=== PATIENT | female | born 1975 | race Two or more races ===

== ENCOUNTER → 2016-10-05 | Emergency (ER) | payer OTHER ==
[~2016-10-05] VITALS: Ht 170.2 cm; Wt 68.0 kg
[2016-10-05 12:35] VITALS: BP 136/78
--- NOTE | 2016-10-05 12:35 | NUR ---
AAOX3, CAME TO ER C/O INTERMITTENT PELVIC PAIN, SHARP NON RADIATING X 2 DAYS. SKIN IS WARM AND DRY. RESP EVEN AND UNLABORED WITH NAD NOTED. AWAITING MD FOR EVAL.
[2016-10-05 13:12] LABS: BASOPHILS % (AUTO) 0.7 % (0.0-2.0); EOSINOPHILS # (AUTO) 0.1 /CMM (0.0-0.7); EOSINOPHILS % (AUTO) 1.8 % (0.0-6.0); HEMATOCRIT 36 % (33-45); LYMPHOCYTES % (AUTO) 21.8 % (20.0-44.0); MEAN CORPUSCULAR HEMOGLOBIN 28 PG (26.0-33.0); MEAN CORPUSCULAR HGB CONC 34 g/dl (31.0-36.0); MEAN CORPUSCULAR VOLUME 84 fL (82-100); MONOCYTES # (AUTO) 0.2 /CMM (0.1-1.30); MONOCYTES % (AUTO) 5.1 % (2.0-12.0); NEUTROPHILS # (AUTO) 3.5 /CMM (1.8-8.9); NEUTROPHILS % (AUTO) 70.6 % (43.0-81.0); PLATELET COUNT (AUTO) 227 /CMM (150-450); RDW COEFFICIENT OF VARIATION 13.3 (11.5-15.0); RED BLOOD CELL COUNT(AUTO) 4.27 MIL/uL (4.0-5.2); WHITE BLOOD COUNT (AUTO) 4.8 K/uL (4.3-11.0)
[2016-10-05 13:16] LABS: APPEARANCE,URINE Clear (CLEAR); BILIRUBIN,URINE Negative (NEGATIVE); BLOOD, URINE Negative Ery/uL (NEGATIVE); COLOR,URINE Yellow (YELLOW); KETONES,URINE Trace (NEGATIVE); LEUKOCYTE ESTERASE ,URINE Negative (NEGATIVE); NITRITE, URINE Negative (NEGATIVE); PROTEIN,URINE Negative (NEGATIVE); UGLUCOSE Negative (NEGATIVE); UROBILINOGEN,URINE 0.2 EU/dL (0.2)
[2016-10-05 14:26] LABS: ADD URINE CULTURE NO; BACTERIA,URINE Few /HPF (None Seen); RBC,URINE 0-2 /HPF (0-2); SQUAMOUS EPITHELIAL CELL,UR Few /HPF (None Seen); WBC,URINE 0-2 /HPF (0-3)
== END | disposition home or self-care (01) ==
LOC: ER 12:22
DX: O20.0 Threatened abortion (principal); R10.2 Pelvic and perineal pain
CPT/HCPCS: 36415; 76856; 81001; 85025; 86850; 99285; A4606; Z7610; 81000-TC

== ENCOUNTER 2016-10-31 17:17 | Emergency (ER) | payer OTHER ==
[~2016-10-31] VITALS: Ht 165.1 cm; Wt 65.8 kg
[2016-10-31] MEDS ORDERED: ONDANSETRON HCL/PF 4 MG/2 ML VIAL ONE (17:37)
[2016-10-31] MEDS ORDERED: IV SET PRIMARY 1 EA INFUS.SET MC ONE (17:37)
[2016-10-31] MEDS ORDERED: HYDROMORPHONE 1 MG/1 ML DISP.SYRIN ONE (17:37)
[2016-10-31] MEDS ORDERED: IV NS 0.9% 500 ML IV ONE (17:37)
--- NOTE | 2016-10-31 17:40 | NUR ---
Pt [id number] from home: vaginal bleeding s/p elective on the . PER PT MINIMAL BLEEDING. COMPLAING OF ABD PAIN. MD AT BS FOR EVAL. VSS. SAFETY AND COMFORT MEASURES PROVIDED. WILL MONITOR.
[2016-10-31 17:42] LABS: BASOPHILS % (AUTO) 0.4 % (0.0-2.0); EOSINOPHILS # (AUTO) 0.1 /CMM (0.0-0.7); EOSINOPHILS % (AUTO) 1.2 % (0.0-6.0); HEMATOCRIT 32 % (33-45); HEMOGLOBIN 10.4 g/dL (11.5-14.8); LYMPHOCYTES # (AUTO) 0.8 /CMM (0.8-4.8); LYMPHOCYTES % (AUTO) 11.5 % (20.0-44.0); MEAN CORPUSCULAR HEMOGLOBIN 28 PG (26.0-33.0); MEAN CORPUSCULAR HGB CONC 33 g/dl (31.0-36.0); MEAN CORPUSCULAR VOLUME 84 fL (82-100); MONOCYTES # (AUTO) 0.4 /CMM (0.1-1.30); MONOCYTES % (AUTO) 5.8 % (2.0-12.0); NEUTROPHILS # (AUTO) 5.6 /CMM (1.8-8.9); NEUTROPHILS % (AUTO) 81.1 % (43.0-81.0); PLATELET COUNT (AUTO) 206 /CMM (150-450); RDW COEFFICIENT OF VARIATION 15.8 (11.5-15.0); RED BLOOD CELL COUNT(AUTO) 3.74 MIL/uL (4.0-5.2); WHITE BLOOD COUNT (AUTO) 6.9 K/uL (4.3-11.0)
--- NOTE | 2016-10-31 17:50 | NUR ---
IV ACCESS STARTED. PT MEDICATED ORDERED. BLOOD DRAWN FOR LABS.
[2016-10-31 17:59] LABS: CALCIUM, SERUM 8.8 mg/dL (8.5-10.1); CREATININE 0.7 mg/dL (0.6-1.3); POTASSIUM 3.4 mmol/L (3.5-5.1)
[2016-10-31] MEDS ORDERED: IV NS 0.9% 500 ML BAG IV ONE (18:00)
[2016-10-31] MEDS ORDERED: HYDROMORPHONE INJ 2 MG/ML DISP.SYRIN IV ONE (18:00)
[2016-10-31] MEDS ORDERED: ONDANSETRON HCL/PF 4 MG/2 ML VIAL IVP ONE (18:00)
--- NOTE | 2016-10-31 18:15 | NUR ---
GIANNA POON AT BS.
--- NOTE | 2016-10-31 18:52 | NUR ---
DR AHUMADA ON THE LINE WITH DR SALEH
--- NOTE | 2016-10-31 19:39 | NUR ---
IV removed. Catheter intact and site benign. Pressure and 4x4 applied to site. No bleeding noted. Patient discharged to home in stable condition. Written and verbal after care instructions given. Patient verbalizes understanding of instruction. ambulatory with a steady gait noted. pt aaox4 no acute distress noted, resp even and unlabored. advice pt not to drive or operate any machinery due pt wad given narcotic medicine. pt verbalize understanding.
[2016-10-31 19:40] VITALS: BP 146/82
== END 2016-10-31 19:41 | disposition home or self-care (01) ==
LOC: ER 17:20
DX: R10.2 Pelvic and perineal pain (principal)
CPT/HCPCS: 36415; 76856-TC; 80048-TC; 85025-TC; A4606; J1170; J2405; J7040; Z7610

== ENCOUNTER 2018-05-22 10:34 | Emergency (ER) | payer OTHER ==
[~2018-05-22] VITALS: Ht 177.8 cm; Wt 65.8 kg
--- NOTE | 2018-05-22 10:50 | NUR ---
C/O NAUSEA AND VOMITING SINCE THIS MORNING, ALSO C/O VIVAS. PT AAOX4, VSS. DENIES CP, SOB, DIARRHEA @ THIS TIME. ARACELY, ACCOUNTS ADJUSTABLE CLERK @ BS FOR EVAL. WILL CONT TO MONITOR.
[2018-05-22] MEDS ORDERED: diphenhydrAMINE HCL 50 MG/ML VIAL ONE (11:16)
[2018-05-22] MEDS ORDERED: METOCLOPRAMIDE HCL 10 MG/2 ML VIAL ONE (11:17)
--- NOTE | 2018-05-22 11:28 | NUR ---
MEDICATED FOR VIVAS & NAUSEA, PT BRENDA WELL.
[2018-05-22] MEDS ORDERED: METOCLOPRAMIDE HCL 10 MG/2 ML VIAL IV ONE (11:30)
[2018-05-22] MEDS ORDERED: diphenhydrAMINE HCL 50 MG/ML VIAL IV ONE (11:30)
[2018-05-22] MEDS ORDERED: IV NS 0.9% 250 ML BAG IV ONE (11:30)
[2018-05-22] MEDS ORDERED: KETOROLAC TROMETHAMINE INJ 30 MG/ML VIAL IV ONE (13:30)
--- NOTE | 2018-05-22 13:37 | NUR ---
Patient discharged to home in stable condition. Written and verbal after care instructions given. Patient verbalizes understanding of instruction. IV removed. Catheter intact and site benign. Pressure and 4x4 applied to site. No bleeding noted.
[2018-05-22 13:38] VITALS: BP 127/70
== END 2018-05-22 13:39 | disposition home or self-care (01) ==
LOC: ER 10:41
DX: G43.909 Migraine, unspecified, not intractable, without status migrainosus (principal); Z98.890 Other specified postprocedural states
CPT/HCPCS: 70450-TC; A4606; J1200; J2765; J7030; J7050; Z7610

== ENCOUNTER 2020-06-11 17:37 | Emergency (ER) | payer MEDICAID, OTHER ==
[~2020-06-11] VITALS: Ht 177.8 cm; Wt 65.8 kg
[2020-06-11] MEDS ORDERED: IV NS 0.9% 1,000 ML BAG IV ONE (18:00)
[2020-06-11] MEDS ORDERED: KETOROLAC TROMETHAMINE INJ 30 MG/ML VIAL IV ONE (18:00)
[2020-06-11] MEDS ORDERED: LORAZEPAM INJ 2 MG/ML VIAL IV ONE (18:00)
[2020-06-11] MEDS ORDERED: KETOROLAC TROMETHAMINE 15 MG/ML VIAL ONE (18:00)
[2020-06-11] MEDS ORDERED: ONDANSETRON HCL/PF - ER 4 MG/2 ML VIAL IV ONE (18:00)
--- NOTE | 2020-06-11 18:00 | NUR ---
BIB [facility] FROM HOME, HEADACHE X 10 HRS ACCOMPANIED BY NAUSEA/VOMITING. PATIENT A/OX4, BREATHING EVEN AND UNLABORED, NO SOB NOTED. NEEDS ATTENDED. IV LINE ESTABLISHED. BLOOD DRAWN.
[2020-06-11] MEDS ORDERED: ONDANSETRON HCL/PF 4 MG/2 ML VIAL ONE (18:01)
[2020-06-11] MEDS ORDERED: LORAZEPAM INJ 2 MG/ML VIAL ONE (18:01)
[2020-06-11 18:20] LABS: BASOPHILS % (AUTO) 0.4 % (0.0-2.0); EOSINOPHILS % (AUTO) 0.1 % (0.0-6.0); HEMATOCRIT 38 % (33-45); HEMOGLOBIN 12.8 g/dL (11.5-14.8); LYMPHOCYTES # (AUTO) 0.9 /CMM (0.8-4.8); LYMPHOCYTES % (AUTO) 14.9 % (20.0-44.0); MEAN CORPUSCULAR HGB CONC 34 g/dl (31.0-36.0); MEAN CORPUSCULAR VOLUME 88 fL (82-100); MONOCYTES # (AUTO) 0.1 /CMM (0.1-1.30); MONOCYTES % (AUTO) 1.8 % (2.0-12.0); NEUTROPHILS # (AUTO) 5.2 /CMM (1.8-8.9); NEUTROPHILS % (AUTO) 82.8 % (43.0-81.0); PLATELET COUNT (AUTO) 227 /CMM (150-450); WHITE BLOOD COUNT (AUTO) 6.3 K/uL (4.3-11.0)
[2020-06-11 18:27] LABS: CALCIUM, SERUM 9.4 mg/dL (8.5-10.1); CREATININE 0.8 mg/dL (0.6-1.3); POTASSIUM 3.4 mmol/L (3.5-5.1)
--- NOTE | 2020-06-11 18:32 | NUR ---
PATIENT STATES HEADACHE IMPROVED 5/10 PS.
[2020-06-11] MEDS ORDERED: METOCLOPRAMIDE HCL 10 MG/2 ML VIAL ONE (18:46)
[2020-06-11] MEDS ORDERED: METOCLOPRAMIDE HCL 10 MG/2 ML VIAL IV ONE (19:00)
--- NOTE | 2020-06-11 19:02 | NUR ---
PATIENT'S HEADACHE IMPROVED. A/OX4, AMBULATORY WITH STEADY GAIT. NO DISTRESS NOTED. IV removed. Catheter intact and site benign. Pressure and 4x4 applied to site. No bleeding noted.Patient discharged to home in stable condition. Written and verbal after care instructions given. Patient verbalizes understanding of instruction.
[2020-06-11 19:05] VITALS: BP 158/87
== END 2020-06-11 19:06 | disposition home or self-care (01) ==
LOC: ER 17:48
DX: G43.909 Migraine, unspecified, not intractable, without status migrainosus (principal); Z98.890 Other specified postprocedural states
CPT/HCPCS: 36415; 80048; 85025; 96361; 96374; 96375; 99284; J1885; J2060; J2405; J2765; J7030